=== PATIENT | female | born 1945 | race Caucasian/White ===

== ENCOUNTER 2019-05-10 14:14 | Emergency (ER) | payer OTHER ==
[~2019-05-10] VITALS: Ht 172.7 cm; Wt 75.7 kg
[2019-05-10 14:30] VITALS: Ht 172.7 cm; Wt 75.7 kg
[2019-05-10 14:53] LABS: BASOPHIL % 0.6 % (0-2); PLATELET COUNT 335 x10^3mcL (130-400)
[2019-05-10 14:56] LABS: RED CELL DISTRIBUTION WIDTH 14.9 % (11.5-14.5)
[2019-05-10 14:59] LABS: CALCIUM 9.5 mg/dL (8.5-10.1); CHLORIDE SERUM 103 mmol/L (98-107); CREATININE SERUM 1.1 mg/dL (0.6-1.0); GLUCOSE SERUM 157 mg/dL (74-106); POTASSIUM SERUM 4.3 mmol/L (3.5-5.1); SODIUM SERUM 138 mmol/L (136-145)
[2019-05-10 15:03] LABS: ALKALINE PHOSPHATASE 75 U/L (46-116); ALT/SGPT 19 U/L (14-59); AST/SGOT 11 U/L (15-37); BILIRUBIN TOTAL 0.4 mg/dL (0.20-1.00); TOTAL PROTEIN, SERUM 7.5 g/dL (6.4-8.2)
[2019-05-10 19:57] VITALS: BP 160/76
== END 2019-05-10 19:57 | disposition short-term general hospital (02) ==
LOC: ED 14:14
PROVIDERS: Emergency Medicine
DX: M86.9 Osteomyelitis, unspecified (principal); E11.621 Type 2 diabetes mellitus with foot ulcer; L97.419 Non-pressure chronic ulcer of right heel and midfoot with unspecified severity
CPT/HCPCS: 82962; J0295; J7030; Q0092

== ENCOUNTER 2020-01-09 02:34 | Emergency (ER) | payer OTHER ==
[~2020-01-09] VITALS: Ht 167.6 cm; Wt 77.1 kg
[2020-01-09 05:28] VITALS: BP 155/31; Ht 167.6 cm; Wt 77.1 kg
== END 2020-01-09 05:30 | disposition expired ==
LOC: ED 02:34
DX: I46.9 Cardiac arrest, cause unspecified (principal); E11.9 Type 2 diabetes mellitus without complications; S00.01XA Abrasion of scalp, initial encounter; X58.XXXA Exposure to other specified factors, initial encounter; Y93.89 Activity, other specified; Y92.89 Other specified places as the place of occurrence of the external cause; Y99.8 Other external cause status
CPT/HCPCS: 83880; 85378; 87804; J7030; U0003